=== PATIENT | female | born 2005 | race Caucasian/White ===

== ENCOUNTER 2025-05-17 19:43 | Emergency (ER) | payer BC, MEDICAID ==
[~2025-05-17] VITALS: Ht 157.5 cm; Wt 52.3 kg
[2025-05-17 19:45] VITALS: TEMP 99.3
[2025-05-17] MEDS ORDERED: FLUORESCEIN SODIUM 1 MG STRIP ONE (21:23)
[2025-05-17] MEDS: GENTAMICIN SULFATE 0.3% OPHTHALMIC SOLUTION 5 ML OD ONE (21:56)
[2025-05-17 22:14] VITALS: BP 109/67; PULSE 76; RESP 18; O2SAT 99
== END 2025-05-17 22:32 | disposition home or self-care (01) ==
LOC: EMS 19:43
DX: S05.01XA Injury of conjunctiva and corneal abrasion without foreign body, right eye, initial encounter (principal); J45.909 Unspecified asthma, uncomplicated; F12.90 Cannabis use, unspecified, uncomplicated; X58.XXXA Exposure to other specified factors, initial encounter; Y93.89 Activity, other specified; Y92.89 Other specified places as the place of occurrence of the external cause; Y99.8 Other external cause status
CPT/HCPCS: 99283